=== PATIENT | male | born 1970 | race Caucasian/White ===

== ENCOUNTER 2020-10-17 04:30 | Emergency (ER) | payer MEDICAID ==
[~2020-10-17] VITALS: Ht 142.2 cm; Wt 52.2 kg
[2020-10-17 04:34] VITALS: BP 139/79
[2020-10-17 07:26] VITALS: BP 139/79
== END 2020-10-17 07:26 | disposition home or self-care (01) ==
LOC: MED 04:30
DX: F15.10 Other stimulant abuse, uncomplicated (principal)
CPT/HCPCS: 99281